=== PATIENT | female | born 1940 | race African-American/Black ===

== ENCOUNTER 2024-08-29 14:37 | Inpatient (IN) | payer BC ==
[~2024-08-29] VITALS: Ht 175.3 cm; Wt 73.9 kg
[2024-08-29 16:20] LABS: HEMATOCRIT 34.9 % (36.0-48.0); HEMOGLOBIN 11.6 g/dL (12.0-16.0); MEAN CORPUSCULAR HEMOGLOBIN 31.4 pg (28.0-32.0); MEAN CORPUSCULAR HGB CONC 33.2 g/dL (31.0-37.0); MEAN CORPUSCULAR VOLUME 94.6 fL (81.0-99.0); PLATELET 277 x1000/uL (130-400); RED BLOOD CELL COUNT 3.69 mill/uL (4.2-5.4); WHITE BLOOD COUNT 6.8 x1000/uL (4.5-11.0)
[2024-08-29 16:45] LABS: CHLORIDE 109 mEq/L (98-107); POTASSIUM 3.7 mEq/L (3.5-5.1); SODIUM 144 mEq/L (136-145)
[2024-08-29 16:46] LABS: CARBON DIOXIDE 28 mEq/L (21-32)
[2024-08-29 16:47] LABS: CALCIUM 10.1 mg/dL (8.7-10.4)
[2024-08-29 16:51] LABS: CREATININE 0.9 mg/dL (0.6-1.0); GLUCOSE 251 mg/dL (70-105); UREA NITROGEN BLOOD 11 mg/dL (9-23)
[2024-08-29 17:02] LABS: TROPONIN I HIGH SENSITIVITY 160 ng/L (3.0-34)
[2024-08-29] MEDS: ASPIRIN 325MG EC TABLET PO SCH (17:47)
[2024-08-29] MEDS: ENOXAPARIN 60MG/0.6ML SYR SUBCUT ONE (17:52)
[2024-08-29 20:00] VITALS: BP 152/72; PULSE 60; RESP 18; TEMP 36.5
[2024-08-29 22:00] VITALS: BP 152/72; PULSE 60; RESP 18; TEMP 36.5; O2SAT 92
[2024-08-29] MEDS ORDERED: IPRATROPIUM/ALBUTEROL 0.5-3(2.5)MG/3ML NEB HHN PRN (23:00)
[2024-08-29] MEDS ORDERED: ONDANSETRON HCL 4MG/2ML INJ IV PRN (23:00)
[2024-08-29] MEDS: METOPROLOL TARTRATE 25MG TABLET PO SCH (23:00)
[2024-08-30 00:52] VITALS: BP 152/72; PULSE 60; RESP 18; TEMP 36.4; O2SAT 94
[2024-08-30 04:00] VITALS: BP 152/54; PULSE 60; RESP 18; TEMP 36.5; O2SAT 95
[2024-08-30 06:27] LABS: BASOPHILS % 0.4 % (0.0-2.0); EOSINOPHILS % 0.7 % (0.0-5.0); HEMATOCRIT. 33.8 % (36.0-48.0); HEMOGLOBIN. 10.9 g/dL (12.0-16.0); LYMPHOCYTES % 34.3 % (20.0-50.0); MEAN CORPUSCULAR HEMOGLOBIN 30.4 pg (28.0-32.0); MEAN CORPUSCULAR HGB CONC 32.3 g/dL (31.0-37.0); MONOCYTES % 6.6 % (2.0-8.0); PLATELET 229 x1000/uL (130-400); RED CELL DISTRIBUTION WIDTH 14.8 % (11.6-14.6); WHITE BLOOD COUNT 6.4 x1000/uL (4.5-11.0)
[2024-08-30 06:49] LABS: CARBON DIOXIDE 27 mEq/L (21-32); CHLORIDE 109 mEq/L (98-107); POTASSIUM 3.5 mEq/L (3.5-5.1); SODIUM 146 mEq/L (136-145)
[2024-08-30 06:50] LABS: CALCIUM 9.1 mg/dL (8.7-10.4)
[2024-08-30 06:51] LABS: CREATINE KINASE MB FRACTION 30.7 ng/mL (0.5-3.6)
[2024-08-30 06:54] LABS: T4 FREE 1.11 ng/dL (0.89-1.76); THYROID STIMULATING HORMONE 0.59 uIU/mL (0.55-4.78)
[2024-08-30 06:55] LABS: CREATININE 0.9 mg/dL (0.6-1.0); GLUCOSE 72 mg/dL (70-105); TRIGLYCERIDE 81 mg/dL (0-150); UREA NITROGEN BLOOD 11 mg/dL (9-23)
[2024-08-30 06:56] LABS: LDL CHOLESTEROL 102 mg/dL (5-100)
[2024-08-30 06:57] LABS: CHOLESTEROL 175 mg/dL (<200); HDL CHOLESTEROL 55 mg/dL (>65)
[2024-08-30 08:00] VITALS: BP 151/75; PULSE 63; RESP 20; TEMP 36.4; O2SAT 95
[2024-08-30] MEDS: ASPIRIN 81MG EC TABLET PO SCH (08:49)
[2024-08-30] MEDS: ENOXAPARIN 40MG/0.4ML SYR SUBCUT SCH (08:52)
[2024-08-30] MEDS: AMLODIPINE 5MG TABLET PO SCH (11:42)
[2024-08-30 12:00] VITALS: BP 133/71; PULSE 61; RESP 18; TEMP 36.6; O2SAT 98
[2024-08-30 16:00] VITALS: BP 108/90; PULSE 58; RESP 18; TEMP 36.6; O2SAT 84
[2024-08-30 17:12] LABS: IRON 40 ug/dL (50-170)
[2024-08-30 17:15] LABS: TOTAL IRON BINDING CAPACITY 270 ug/dl (250-425)
[2024-08-30 17:16] LABS: CREATINE KINASE MB FRACTION 22.1 ng/mL (0.5-3.6)
[2024-08-30 17:17] LABS: VITAMIN B12 SERUM 298 pg/mL (211-911)
[2024-08-30 17:18] LABS: T4 FREE 0.95 ng/dL (0.89-1.76)
[2024-08-30 20:00] VITALS: BP 140/43; PULSE 70; RESP 18; TEMP 36.4; O2SAT 97
[2024-08-30] MEDS: HYDROCODONE/ACETAMINOPHEN 5/325MG TABLET PO PRN (22:50)
[2024-08-30 23:45] LABS: CLARITY URINE CLEAR (CLEAR); COLOR URINE YELLOW (YELLOW); GLUCOSE URINE NEGATIVE (NEGATIVE); KETONES URINE NEGATIVE (NEGATIVE); LEUKOCYTE ESTERASE URINE NEGATIVE (NEGATIVE); NITRITE URINE NEGATIVE (NEGATIVE); OCCULT BLOOD URINE NEGATIVE (NEGATIVE); PROTEIN URINE NEGATIVE (NEGATIVE); SPECIFIC GRAVITY URINE 1.005 (1.005-1.030); UROBILINOGEN URINE 0.2 E.U./dL (0.2-1.0)
[2024-08-31] VITALS: BP 157/72; PULSE 52; RESP 18; TEMP 36.4; O2SAT 92
[2024-08-31 00:07] LABS: *AMPHETAMINES SCREEN URINE NEGATIVE (NEGATIVE); *BARBITURATES SCREEN URINE NEGATIVE (NEGATIVE); *BENZODIAZEPINES SCREEN URINE NEGATIVE (NEGATIVE); *COCAINE SCREEN URINE NEGATIVE (NEGATIVE); CANNABINOID URINE SCREEN NEGATIVE (NEGATIVE); ECSTASY MDMA SCREEN URINE NEGATIVE (NEGATIVE); METHADONE URINE SCREEN NEGATIVE (NEGATIVE); OPIATES URINE SCREEN NEGATIVE (NEGATIVE); PHENCYCLIDINE URINE SCREEN NEGATIVE (NEGATIVE)
[2024-08-31 04:00] VITALS: BP 150/80; PULSE 50; RESP 17; TEMP 36.4; O2SAT 96
[2024-08-31 07:25] LABS: BASOPHILS % 0.7 % (0.0-2.0); EOSINOPHILS % 1.3 % (0.0-5.0); HEMATOCRIT. 34.1 % (36.0-48.0); HEMOGLOBIN. 11.1 g/dL (12.0-16.0); LYMPHOCYTES % 32.7 % (20.0-50.0); MEAN CORPUSCULAR HEMOGLOBIN 30.4 pg (28.0-32.0); MEAN CORPUSCULAR HGB CONC 32.6 g/dL (31.0-37.0); MEAN CORPUSCULAR VOLUME 93.2 fL (81.0-99.0); MEAN PLATELET VOLUME 7.6 fl (7.4-10.4); MONOCYTES % 8.7 % (2.0-8.0); NEUTROPHILS % 56.6 % (40.0-76.0); PLATELET 235 x1000/uL (130-400); RED BLOOD CELL COUNT 3.66 mill/uL (4.2-5.4); RED CELL DISTRIBUTION WIDTH 14.5 % (11.6-14.6); WHITE BLOOD COUNT 5.8 x1000/uL (4.5-11.0)
[2024-08-31 08:00] VITALS: BP 150/76; PULSE 63; RESP 18; TEMP 36.1; O2SAT 98
[2024-08-31 08:21] LABS: CARBON DIOXIDE 28 mEq/L (21-32); CHLORIDE 107 mEq/L (98-107); POTASSIUM 4.3 mEq/L (3.5-5.1); SODIUM 141 mEq/L (136-145)
[2024-08-31 08:27] LABS: CREATININE 0.9 mg/dL (0.6-1.0); GLUCOSE 104 mg/dL (70-105); UREA NITROGEN BLOOD 9 mg/dL (9-23)
[2024-08-31] MEDS ORDERED: AMLO10TA80 MT (09:25)
[2024-08-31] MEDS: LOSARTAN 25 MG TABLET PO SCH (10:15)
[2024-08-31 12:00] VITALS: BP 113/59; PULSE 57; RESP 17; TEMP 36.2; O2SAT 95
[2024-08-31 13:25] VITALS: BP 147/97; PULSE 80; TEMP 97.5; O2SAT 93
== END 2024-08-31 14:08 | disposition home or self-care (01) | DRG 282 ==
LOC: ER 14:37 → EDBEDREQ 17:48 → EDBEDREQTM 17:48 → 5WST 19:45
PROVIDERS: ADMIT Internal Medicine; ATTEND Internal Medicine
DX: I21.4 Non-ST elevation (NSTEMI) myocardial infarction (principal); I10 Essential (primary) hypertension; D64.9 Anemia, unspecified; D50.9 Iron deficiency anemia, unspecified; M79.601 Pain in right arm; F17.210 Nicotine dependence, cigarettes, uncomplicated; Z79.899 Other long term (current) drug therapy; M19.09 Primary osteoarthritis, other specified site
CPT/HCPCS: 36415; 71045; 73110; 73130; 80048; 80061; 80305; 81003; 82270; 82550; 82553; 82607; 83036; 83540; 83550; 84439; 84443; 84481; 84484; 85025; 85027; 85044; 93005; 93306; 99291; A4606; J1650